=== PATIENT | female | born 1940 | race Caucasian/White ===

== ENCOUNTER 2022-04-02 18:17 | Emergency (ER) | payer MEDICARE ==
[2022-04-02 19:47] LABS: ANION GAP 18.8 mEq/L (7-13)
== END 2022-04-02 20:49 | disposition home or self-care (01) ==
LOC: DL.ED 18:17
DX: R55 Syncope and collapse (principal); S00.03XA Contusion of scalp, initial encounter; E11.9 Type 2 diabetes mellitus without complications; Z88.7 Allergy status to serum and vaccine; Z88.2 Allergy status to sulfonamides; W19.XXXA Unspecified fall, initial encounter
CPT/HCPCS: 36415; 70450; 80053; 84484; 85025; 93005; 99284